=== PATIENT | female | born 1995 | race Two or more races ===

== ENCOUNTER 2018-12-19 12:47 | Emergency (ER) | payer MEDICAID ==
[~2018-12-19] VITALS: Ht 172.7 cm; Wt 90.7 kg
--- NOTE | 2018-12-19 13:05 | NUR ---
CAME IN FOR WORSENING RIGHT BREAST PAIN WITH SWELLING, REDNESS AND DISCHARGES X2WKS, CURRENTLY ON ANTIBIOTICS, TO ER BED 10, HOOKED TO MONITOR, CHANGED TO GOWN, PROVIDED W WARM BLANKET, AWAITING MD DE SANTIAGO.
[2018-12-19] MEDS ORDERED: CLINDAMYCIN 900 MG in IV D5W 100 ML IV ONE (13:30)
[2018-12-19] MEDS ORDERED: IV NS 0.9% 1,000 ML BAG IV ONE (13:30)
--- NOTE | 2018-12-19 13:34 | NUR ---
US TECH AT BEDSIDE
[2018-12-19] MEDS ORDERED: CLINDAMYCIN 900 MG/6 ML VIAL ONE (13:36)
[2018-12-19 13:38] LABS: BASOPHILS % (AUTO) 0.4 % (0.0-2.0); EOSINOPHILS % (AUTO) 1.4 % (0.0-6.0); HEMATOCRIT 44 % (33-45); HEMOGLOBIN 14.7 g/dL (11.5-14.8); LYMPHOCYTES # (AUTO) 3.1 /CMM (0.8-4.8); LYMPHOCYTES % (AUTO) 27.7 % (20.0-44.0); MEAN CORPUSCULAR HGB CONC 34 g/dl (31.0-36.0); MEAN CORPUSCULAR VOLUME 92 fL (82-100); MONOCYTES # (AUTO) 0.6 /CMM (0.1-1.30); MONOCYTES % (AUTO) 5.2 % (2.0-12.0); NEUTROPHILS # (AUTO) 7.2 /CMM (1.8-8.9); NEUTROPHILS % (AUTO) 65.3 % (43.0-81.0); PLATELET COUNT (AUTO) 360 /CMM (150-450); RED BLOOD CELL COUNT(AUTO) 4.72 MIL/uL (4.0-5.2)
[2018-12-19 13:44] LABS: CALCIUM, SERUM 9.8 mg/dL (8.5-10.1); CREATININE 0.6 mg/dL (0.6-1.3)
[2018-12-19 13:50] LABS: BILIRUBIN,DIRECT 0.1 mg/dL (0.0-0.2); BILIRUBIN,TOTAL 0.2 mg/dL (0.2-1.0); TOTAL PROTEIN, SERUM 8.3 g/dL (6.4-8.2)
--- NOTE | 2018-12-19 13:56 | NUR ---
FINGERPRINT TECHNICIAN AT BEDSIDE
--- NOTE | 2018-12-19 14:01 | NUR ---
JAILER AT BEDSIDE
--- NOTE | 2018-12-19 14:02 | NUR ---
FROM 13:29 TO 13:37 WAITING FOR LAB AND RN TAKING BLOOD AND PUTTING IV-LINE EXAM START 13:37-13:52
--- NOTE | 2018-12-19 15:07 | NUR ---
CALLED YOSEPH FOR CHEST XRAY READ
[2018-12-19 16:47] VITALS: BP 123/70
--- NOTE | 2018-12-19 16:47 | NUR ---
IV removed. Catheter intact and site benign. Pressure and 4x4 applied to site. No bleeding noted.Patient discharged to home in stable condition. Written and verbal after care instructions given. Patient verbalizes understanding of instruction.
== END 2018-12-19 16:49 | disposition home or self-care (01) ==
LOC: ER 12:53
DX: N61.0 Mastitis without abscess (principal)
CPT/HCPCS: 36415; 71045; 76882; 80048; 80076; 83605; 85025; 87040 ×2; 93005; 96365; 99284; J3490; J7030; J7060